=== PATIENT | male | born 1950 | race Caucasian/White ===

== ENCOUNTER 2022-12-27 09:44 | Day surgery (SDC) | payer MEDICARE, SELFPAY ==
--- NOTE | 2022-12-26 11:08 | P.CONAN_ITS ---
Documented by User: Kerri Batres NP 12/26/22 11:08 HPI - Anesthesia Eval Consult details Narrative: 72yo M for Colonoscopy [facility] Past Medical History Medical History Bradycardia HTN (hypertension) Hx of hyperlipidemia Surgical History Surgical History Hx of colonoscopy Hx of cystoscopy Hx of lithotripsy Social History Social History Patient Tobacco Use Status: Never used Tobacco Use of substances other than those prescribed or required for medical reasons: No Are you DNR?: No Advance Directives: No Advance Directives Information Provided: Yes Recently lost weight without trying: No Nutrition Risks: No Nutritional Risk Meds Allergies Allergy/AdvReac Type Severity Reaction Status Date / Time No Known Allergies Allergy Verified 12/26/22 11:08 Home Medications Medication Instructions Recorded Confirmed Last Taken Type amlodipine 5 mg-benazepril 10 mg 1 cap PO DAILY 12/26/22 12/26/22 Unknown History capsule Exam Exam Date and Time: December 26, 20221107 Assessment and Plan Assessment Anesthesia Assessment: Chart Reviewed Documented by User: Mounika Kuo MD 12/27/22 12:20 [facility] Past Medical History Medical History Bradycardia HTN (hypertension) Hx of hyperlipidemia Surgical History Surgical History Hx of colonoscopy Hx of cystoscopy Hx of lithotripsy History of Problems with Anesthesia: No Social History Social History Patient Tobacco Use Status: Never used Tobacco Use of substances other than those prescribed or required for medical reasons: No Are you DNR?: No Advance Directives: No Advance Directives Information Provided: Yes Recently lost weight without trying: No Nutrition Risks: No Nutritional Risk Meds Allergies Allergy/AdvReac Type Severity Reaction Status Date / Time No Known Allergies Allergy Verified 12/26/22 11:08 Home Medications Medication Instructions Recorded Confirmed Last Taken Type amlodipine 5 mg-benazepril 10 mg 1 cap PO DAILY 12/26/22 12/26/22 Unknown History capsule Exam Airway Mallampati Class: III TM Dist: >3cm Neck ROM: Full Partial: Upper Loose/Missing/Broken Teeth: Yes, Upper and Lower Heart: RRR Lungs: CTA Assessment and Plan Assessment Anesthesia Assessment: Anesthesia Plan Discussed Final Anesthetic Review History of Problems with Anesthesia: No NPO: Yes ASA Class: II Final Preanesthetic Review: Meds/Allgs Chart Reviewed, Consent Obtained/Reviewed and Anes Risks/Benef Reviewed Patient Risk: Low Procedure Risk: Low Anesthetic Plan Anesthetic Plan: MAC: Disposition: Standard PACU
--- OUTSIDE RECORDS SUMMARY | 2022-12-27 09:46 | XMS_ITS | Continuity of Care Document ---
Author Name Unknown Organization [facility] Address [address] [place] [address]- Care Team Providers Care Filter Bed Placer Name Role Phone Isael BARRY, Lewis Kam Primary Care Physician Encounter [facility] Date(s): 08/25/22 - 09/24/[address] [address] Attending Physician: Elma Camarena Admitting Physician: Elma Camarena Referring Physician: Elma Camarena Referring Physician: Concha Aponte Allergies, Adverse Reactions, Alerts No Known Allergies Immunizations Given and Recorded Vaccine Date Status Refusal Reason influenza virus vaccine, inactivated 07/20/22 Robin rded influenza virus vaccine, inactivated 07/21/21 Robin rded influenza virus vaccine, inactivated 05/18/20 Robin rded influenza virus vaccine, inactivated 07/30/19 Give n influenza virus vaccine, inactivated 05/25/17 Robin rded influenza virus vaccine, inactivated 1 06/02/16 Re corded influenza virus vaccine, inactivated 05/21/15 Robin rded influenza virus vaccine, inactivated 10/02/14 Robin rded [id number] bivalent booster vax 07/20/22 Recorded zoster vaccine, inactivated 12/06/21 Recorded zoster vaccine, inactivated 09/02/21 Recorded SARS-CoV-2 (COVID-19) mRNA-1273 vaccine 07/21/21 R ecorded SARS-CoV-2 (COVID-19) mRNA-1273 vaccine 11/12/20 R ecorded SARS-CoV-2 (COVID-19) mRNA-1273 vaccine 10/14/20 R ecorded pneumococcal 23-valent vaccine 07/30/19 Given pneumococcal 13-valent vaccine 2 06/08/17 Given Adacel (Tdap) (oldterm) 06/05/14 Recorded 1Result Comment: [06/02/2016] pt states he got today at work 2Result Comment: [06/08/2017] [facility]: [id number] Medications amlodipine-benazepril 5 mg-10 mg oral capsule 1 capsule, By Mouth, Daily, # 90 capsule, 0 Refills, 07/26/22 10:30:00 EST, [id number], 90,1 capsule By Mouth Daily, 175, cm, 06/10/22 8:39:00 EDT, Height Start Date: 07/26/22 Status: Ordered Benadryl 25 mg oral capsule 1 capsule = 25 mg, By Mouth, 3 times a day, 0 Refills, Maintenance, 09/22/21 14:17:00 EST, Partial fill upon patient request if the prescription is for a schedule II opioid drug. Start Date: 09/22/21 Status: Ordered cholecalciferol 2000 intl units oral tablet take one tab, by mouth daily, 06/18/13 16:11:00 Start Date: 06/18/13 Status: Ordered fluorouracil 0.5% topical cream 1 application, Topically, 2 times a day, # 30 Gm, 0 Refills, Maintenance, 09/22/21 14:17:00 EST, Cream, Partial fill upon patient request if the prescription is for a schedule II opioid drug. Start Date: 09/22/21 Status: Ordered ibuprofen 600 mg oral tablet 600 mg, 1, tablet, By Mouth, Every 8 hours, PRN, # 20 tablet, Refills 0, Tot. Refills 0, Maintenance, as needed for pain, 09/14/17 22:26:20, Print Requisition Start Date: 09/14/17 Status: Ordered Triamcinolone Once, 0 Refills, Maintenance, 09/22/21 14:18:00 EST, Partial fill upon patient request if the prescription is for a schedule II opioid drug. Start Date: 09/22/21 Status: Ordered Problem List Condition Confirmation Course Effective Dates Status H ealth Status Informant Hypercholesterolemia Confirmed Active Microscopic hematuria Confirmed Active Thrombocytopenia Confirmed Active Social History Social History Type Response Smoking Status Never smoker entered on: 06/11/15 Sex Patient Care team information Care Team Personnel Name: eLwis Kirkland MD Position: [facility] Primary Care Physician Member Role: PCP Address: Address: [address] [place] [address]- Care Team Related Persons Name: ADINA GORE Address: home [address] [facility] [address] [place] [address]
--- OUTSIDE RECORDS SUMMARY | 2022-12-27 09:46 | XMS_ITS | Continuity of Care Document ---
Author Name Unknown Organization [facility] [place] Address [address] [place] [address]- Care Team Providers Care Pharmaceutical Analyst Name Role Phone Isael BARRY, Lewis Kam Primary Care Physician ( [phone] Encounter [facility] Date(s): 12/04/20 - 01/03/21 [facility] [place] [address] [place] [address]- Attending Physician: Elma Camarena Admitting Physician: AdmElma vázquez Referring Physician: AdmtrElma Allergies, Adverse Reactions, Alerts Substance Reaction Severity Status No known allergies Active Immunizations Given and Recorded Vaccine Date Status Refusal Reason pneumococcal 23-valent vaccine 07/30/19 Given influenza virus vaccine, inactivated 07/30/19 Give n influenza virus vaccine, inactivated 1 06/02/16 Re corded pneumococcal 13-valent vaccine 2 06/08/17 Given Adacel (Tdap) (oldterm) 06/05/14 Recorded 1Result Comment: [06/02/2016] pt states he got today at work 2Result Comment: [06/08/2017] [facility]: [id number] Medications cholecalciferol 2000 intl units oral tablet take one tab, by mouth daily, 06/18/13 16:11:00 Start Date: 06/18/13 Status: Ordered ibuprofen 600 mg oral tablet 600 mg, 1, tablet, By Mouth, Every 8 hours, PRN, # 20 tablet, Refills 0, Tot. Refills 0, Maintenance, as needed for pain, 09/14/17 22:26:20, Print Requisition Start Date: 09/14/17 Status: Ordered Problem List Condition Effective Dates Status Health Status Inform ant Hypercholesterolemia(Confirmed) Active Microscopic hematuria(Confirmed) Active Thrombocytopenia(Confirmed) Active Social History Social History Type Response Smoking Status Never smoker entered on: 06/11/15 Sex
--- OUTSIDE RECORDS SUMMARY | 2022-12-27 09:46 | XMS_ITS | Continuity of Care Document ---
Author Name Unknown Organization [facility] [place] Address [address] [place] [address]- Care Team Providers Care Mechanical Press Operator Name Role Phone Lewis Kirkland MD Primary Care Physician Encounter [facility] Date(s): 06/28/20 - 09/04/20 [facility] [place] [address] [place] [address]- Attending Physician: Lewis Kirkland MD Allergies, Adverse Reactions, Alerts Substance Reaction Severity [...] got today at work 2Result Comment: [06/08/2017] [facility]: [id number] Medications cholecalciferol 2000 intl units oral tablet [...]
--- OUTSIDE RECORDS SUMMARY | 2022-12-27 09:46 | XMS_ITS | Continuity of Care Document ---
Author Name Unknown Organization [facility] ter Address [address] [place] [address]- Care Team Providers Care Export Coordinator Name Role Phone Isael BARRY, Lewis Kam Primary Care Physician Encounter [facility] Date(s): 09/03/22 - 11/03/[address] [address] Attending Physician: Papi Loving MD, I Admitting Physician: Papi Loving MD, I Allergies, Adverse Reactions, Alerts No Known Allergies [...] influenza virus vaccine, inactivated 10/02/14 Robin rded [id number] bivalent booster vax 07/20/22 Recorded zoster vaccine, [...] got today at work 2Result Comment: [06/08/2017] [facility]: [id number] Medications amlodipine-benazepril 5 mg-10 mg oral capsule 1 capsule, By Mouth, Daily, please fill pt leaving for vacation, # 90 capsule, 2 Refills, 10/05/22 15:02:00 EST, [id number], please fill pt going on vacation, 1 capsule By Mouth Daily,Instr:please fill pt leaving for vacation, 175, cm, ... Start Date: 10/05/22 Status: Ordered Benadryl 25 mg oral capsule [...] Status Never smoker entered on: 06/11/15 Sex History and physical note * Event Display: History and Physical Hospital Authored Date: Patient Care team information Care Team Personnel Name: Isael BARRY, Lewis Kam Position: [facility] Primary Care Physician Member Role: PCP Address: Address: [address] [place] [address]- Care Team Related Persons Name: ADINA GORE Address: home [address] [facility] [address] [facility] [address] [place] [address]
--- OUTSIDE RECORDS SUMMARY | 2022-12-27 09:46 | XMS_ITS | Continuity of Care Document ---
Author Name Unknown Organization [facility] Address [address] [place] [address]- Care Team Providers Care Water Taxi Operator Name Role Phone Isael BARRY, Lewis Kam Primary Care Physician Encounter [facility] Date(s): 03/25/20 - 04/24/20 [facility] [address] [place] [address]- [facility] Attending Physician: Elma Camarena Admitting Physician: AdmtrElma Referring Physician: Admtr, Ar8 Allergies, Adverse Reactions, Alerts Substance Reaction Severity [...] got today at work 2Result Comment: [06/08/2017] [facility]: [id number] Medications cholecalciferol 2000 intl units oral tablet [...]
--- OUTSIDE RECORDS SUMMARY | 2022-12-27 09:47 | XMS_ITS | Continuity of Care Document ---
Author Name Unknown Organization [facility] Address [address] [place] [address]- Care Team Providers Care Express Manager Name Role Phone Isael BARRY, Lewis Kam Primary Care Physician Encounter [facility] Date(s): 07/05/22 - 08/04/22 [facility] [address] [place], [place] [address] Allergies, Adverse Reactions, Alerts No Known Allergies Immunizations Given and Recorded Vaccine Date Status Refusal Reason pneumococcal 23-valent vaccine 07/30/19 Given influenza virus vaccine, inactivated 07/30/19 Give n influenza virus vaccine, inactivated 1 06/02/16 Re corded pneumococcal 13-valent vaccine 2 06/08/17 Given Adacel (Tdap) (oldterm) 06/05/14 Recorded 1Result Comment: [06/02/2016] pt states he got today at work 2Result Comment: [06/08/2017] [facility]: [id number] Medications amlodipine-benazepril 5 mg-10 mg oral capsule 1 capsule, By Mouth, Daily, # 90 capsule, 0 Refills, 07/26/22 10:30:00 EST, [id number], 90,1 capsule By Mouth Daily, 175, [...] Personnel Name: Isael BARRY, Lewis Kam Position: S Primary Care Physician Member Role: PCP Address: Address: [address] [place] [address]- Care Team Related Persons Name: ADINA GORE Address: home [address] [facility] [address] [place] [address]
--- OUTSIDE RECORDS SUMMARY | 2022-12-27 09:47 | XMS_ITS | Continuity of Care Document ---
Author Name Unknown Organization [facility] [place] Address [address] [place] [address]- Care Team Providers Care Engineering Program Analyst Name Role Phone Lewis Kirkland MD Primary Care Physician Encounter [facility] Date(s): 10/23/21 - 02/20/22 [facility] [place] [address] [place] [address]- Attending Physician: Lewis Kirkland MD Allergies, Adverse Reactions, Alerts No Known Allergies Immunizations Given and Recorded Vaccine Date Status Refusal Reason pneumococcal 23-valent vaccine 07/30/19 Given influenza virus vaccine, inactivated 07/30/19 Give n influenza virus vaccine, inactivated 1 06/02/16 Re corded pneumococcal 13-valent vaccine 2 06/08/17 Given Adacel (Tdap) (oldterm) 06/05/14 Recorded 1Result Comment: [06/02/2016] pt states he got today at work 2Result Comment: [06/08/2017] [facility]: [id number] Medications amlodipine-benazepril 5 mg-10 mg oral capsule 1 capsule, By Mouth, Daily, # 90 capsule, 0 Refills, 01/24/22 11:55:00 EDT, [id number], 90,1 capsule By Mouth Daily, 175, cm, 09/22/21 14:22:00 EST, Height Start Date: 01/24/22 Status: Ordered cholecalciferol 2000 intl units oral [...]
--- OUTSIDE RECORDS SUMMARY | 2022-12-27 09:47 | XMS_ITS | Continuity of Care Document ---
Author Name Unknown Organization [facility] Primary [facility] [place] Address [address] [place] [address]- Care Team Providers Care Test Equipment Mechanic Name Role Phone Lewis Kirkland MD Primary Care Physician Encounter [facility] [id number] Date(s): 01/28/20 - 02/27/20 [facility] [place] [address] [place] [address]- [facility] Attending Physician: Elma Camarena Admitting Physician: AdmElma [...] got today at work 2Result Comment: [06/08/2017] [facility]: [id number] Medications cholecalciferol 2000 intl units oral tablet [...]
--- OUTSIDE RECORDS SUMMARY | 2022-12-27 09:47 | XMS_ITS | Continuity of Care Document ---
Author Name Unknown Organization [facility] Address [address] [place] [address]- Care Team Providers Care Death Claim Examiner Name Role Phone Isael BARRY, Lewis Kam Primary Care Physician ( [phone] Encounter [facility] Date(s): 01/24/22 - 02/23/22 [facility] [address] [place], [place] [address] Allergies, Adverse Reactions, Alerts No Known Allergies Immunizations Given and Recorded Vaccine Date Status Refusal Reason pneumococcal 23-valent vaccine 07/30/19 Given influenza virus vaccine, inactivated 07/30/19 Give n influenza virus vaccine, inactivated 1 06/02/16 Re corded pneumococcal 13-valent vaccine 2 06/08/17 Given Adacel (Tdap) (oldterm) 06/05/14 Recorded 1Result Comment: [06/02/2016] pt states he got today at work 2Result Comment: [06/08/2017] [facility]: [id number] Medications amlodipine-benazepril 5 mg-10 mg oral capsule [...]
--- OUTSIDE RECORDS SUMMARY | 2022-12-27 09:47 | XMS_ITS | Continuity of Care Document ---
Author Name Unknown Organization [facility] Primary [facility] [place] Address [address] [place] [address]- Care Team Providers Care Cooler Service Supervisor Name Role Phone Isael BARRY, Lewis Kam Primary Care Physician Encounter [facility] Date(s): 09/07/20 - 10/07/20 [facility] [place] [address] [place] [address]- Attending Physician: Elma Camarena Admitting Physician: AdmElma [...] at work 2Result Comment: [06/08/2017] [facility]: [id number] Medications cholecalciferol 2000 intl units oral tablet [...]
--- OUTSIDE RECORDS SUMMARY | 2022-12-27 09:47 | XMS_ITS ---
Author Name Justice Corrigan Jr Address [address] [place] [address] Organization [facility] Address [address] [place] [address] Care Team Providers Care Licensed Bondsman Name Role Phone Justice Corrigan Jr Unavailable PROBLEMS Type Condition ICD9-CM Code [id number] Code Onset Dates Condition Status SNOMED Code Problem Abnormal CT scan, colon R93.3 Active 256819558 Problem Pancreatic cyst K86.2 Active [id number] ALLERGIES No Known Allergies ENCOUNTERS Encounter Location Date Diagnosis [facility] Outpatient [address] [place] [id number] December, [facility] [address] [place] [phone] Nov, Pancreatic cyst K86.[address] scan, colon R93.3 [facility] [address] [place] [phone] Nov, IMMUNIZATIONS Vaccine Route Administration Date Status Influenza Unknown May 31, 2022 Administered SOCIAL HISTORY Qualifiers Date Never Smoker REASON FOR REFERRAL FUNCTIONAL STATUS PLAN OF CARE Activity Details VITAL SIGNS Weight 184 lbs 2022-12-05 Height 68 in 2022-12-05 BMI 27.97 kg/m2 2022-12-05 Temperature 98.7 degrees Fahrenheit Blood pressure systolic 000 mm Hg Blood pressure diastolic 00 mm Hg 2022-11 MEDICATIONS Medication Instructions Dosage Frequency Start Date End Date Duration Status MiraLax (colon prep) 17 GM/SCOOP Orally begin at 5:00 p.m. the day before the procedure mixed with Gatorade or Crystal Light Nov, 1 day Active amLODIPine Besy-Benazepri l HCl 5-10 MG 90 Active Vitamin D (Ergocalcifero l) 1.25 MG ([address] UT) 1 capsule 30 day(s) Active PROCEDURES Procedure Date Ordered Result Body Site PATIENT NOT ELIG D/T ACTIVE DX HTN December 05, 2022 Pt scrn tbco id as non user December 05, 2022 RCMND FLW-UP 10 YRS DOCD February 05, 2019 DOC MEDS VERIFIED W/PT OR RE December 05, 2022 COLORECTAL CA SCREEN DOC REV December 05, 2022 INTRVL 3+YRS PTS CLNSCP DOCD February 05, 2019 COLOREC CANCR SCR; COLNSCPY HI RISK February 05, 2019 COLONOSCOPY AND BIOPSY Aug 20, 2013 RESULTS No Results REASON FOR VISIT abn ct scan ,colon, Patient presents today for abnormal CT / appt per dr. corrigan, with abnormal CT/ waitng on CT report Insurance Providers Health Insurance Type Health Plan Insurance Address Health Plan Insurance Phone Health Plan Insurance Name Health Plan Coverage Dates Member ID Patient Relationship to Subscriber Patient Address Patient Phone Patient Name Patient Date of Subscriber ID Subscriber Name Subscriber Date of Group No [place] [address] [facility] [phone] 04 [place] [id number] [place] [address] [facility] [id number] [employer] [place] self [place] [id number] [place] [address] [facility] [address] 65 04 [place] [id number] [employer] [place] [address] [facility] [id number] 20 60 [employer] [place] [place] self [place]DY [place] [id number]
--- OUTSIDE RECORDS SUMMARY | 2022-12-27 09:47 | XMS_ITS | Continuity of Care Document ---
Author Name Unknown Organization [facility] Address [address] [place] [address]- Care Team Providers Care Repair Service Clerk Name Role Phone Isael BARRY, Lewis Kam Primary Care Physician Encounter [facility] Date(s): 10/03/22 - 11/02/22 [facility] [address] [place], [place] [address] Allergies, Adverse Reactions, Alerts No Known [...] influenza virus vaccine, inactivated 10/02/14 Robin rded [id number] bivalent booster vax 07/20/22 Recorded zoster vaccine, [...] got today at work 2Result Comment: [06/08/2017] [facility]: [id number] Medications amlodipine-benazepril 5 mg-10 mg oral capsule [...] Care team information Care Team Personnel Name: Lewis Kirkland MD Position: S Primary Care Physician Member Role: PCP Address: Address: [address] [place] [address] [place] Care Team Related Persons Name: ADINA GORE Address: home [address] [facility] [address] [place] [address]
--- OUTSIDE RECORDS SUMMARY | 2022-12-27 09:47 | XMS_ITS | Continuity of Care Document ---
Author Name Unknown Organization [facility] Primary [facility] [place] Address [address] [place] [address]- Care Team Providers Care Furnishings Conservator Name Role Phone Lewis Kirkland MD Primary Care Physician ( [phone] Encounter [facility] Date(s): 04/22/19 - 08/15/19 [facility] [place] [address] [place] [address]- [facility] Attending Physician: Lewis Kirkland MD Allergies, Adverse [...] got today at work 2Result Comment: [06/08/2017] [facility]: [id number] Medications cholecalciferol 2000 intl units oral tablet [...]
--- OUTSIDE RECORDS SUMMARY | 2022-12-27 09:47 | XMS_ITS | Continuity of Care Document ---
Author Name Unknown Organization [facility] Primary [facility] [place] Address [address] [place] [address]- Care Team Providers Care Joist Setter Name Role Phone Isael BARRY, Lewis Kam Primary Care Physician Encounter [facility] Date(s): 03/10/20 - 04/09/20 [facility] [place] [address] [place] [address]- [facility] Allergies, Adverse Reactions, Alerts Substance Reaction Severity [...] today at work 2Result Comment: [06/08/2017] [facility]: [id number] Medications cholecalciferol 2000 intl units oral tablet [...]
--- OUTSIDE RECORDS SUMMARY | 2022-12-27 09:47 | XMS_ITS | Continuity of Care Document ---
Author Name Unknown Organization [facility] Primary [facility] Address [address] [place] [address]- Care Team Providers Care Electrical Designer Drafter Name Role Phone Lewis Kirkland MD Primary Care Physician Encounter [facility] Date(s): 05/26/20 - 09/04/20 [facility] [place] [address] [place] [address]- Attending Physician: Lewis Kirkland MD Allergies, Adverse [...] got today at work 2Result Comment: [06/08/2017] [facility]: [id number] Medications cholecalciferol 2000 intl units oral tablet [...]
--- OUTSIDE RECORDS SUMMARY | 2022-12-27 09:47 | XMS_ITS | Continuity of Care Document ---
Author Name Unknown Organization [facility] Primary [facility] Address [address] [place] [address]- Care Team Providers Care Tuber Machine Operator Name Role Phone Lewis Kirkland MD Primary Care Physician Encounter [facility] Date(s): 07/13/22 - 11/10/22 [facility] [address] [place], [place] [address] Attending Physician: Lewis Kirkland MD Allergies, Adverse [...] influenza virus vaccine, inactivated 10/02/14 Robin rded [id number] bivalent booster vax 07/20/22 Recorded zoster vaccine, [...] got today at work 2Result Comment: [06/08/2017] [facility]: [id number] Medications amlodipine-benazepril 5 mg-10 mg oral capsule 1 capsule, By Mouth, Daily, please fill pt leaving for vacation, # 90 capsule, 2 Refills, 10/05/22 15:02:00 EST, [id number], please fill pt going on vacation, 1 [...] Care Physician Member Role: PCP Address: Address: [address] [place] [address]- [place] Care Team Related Persons Name: ADINA GORE Address: home [address] [facility] [address] [place] [address]
[2022-12-27 11:08] VITALS: BMI 26.6
[2022-12-27 11:22] VITALS: BP 153/69; PULSE 43; RESP 16; TEMP 35.8; O2SAT 97
[2022-12-27] MEDS: Lactated Ringers 1,000 ML 100 ML IVCONT (11:54)
--- NOTE | 2022-12-27 12:32 | MHC.SHP ---
Pre-Procedural Eval Section A Date of Service: 12/27/22 Section B Chief Complaint: Abnormal findings on diagnostic imaging of other Details of Present Illness: see H&P Relevant Family History (Specify if Yes): No Relevant Social History: None Present Medications: see Short Stay Collaborative assessment Medical History: No relevant PMH History of Previous Operations: No relevant previous surgery Allergies: Allergies Allergy/AdvReac Type Severity Reaction Status Date / Time No Known Allergies Allergy Verified 12/26/22 11:08 Review of Systems Sugical H&P ROS: Negative: Constitution, Cardiovascular, Respiratory, Neurological, Psychiatric, Hem-Onc, Allergic/Immunologic, Gastrointestinal, Genitourinary, Musculoskeletal, Integumentary, Endocrine and Eyes/Ears/Nose/Throat Exam Surgical H&P Exam: Normal: HEENT, Normal: Heart, Normal: Lungs, Normal: Extremities, Normal: Abdomen, Normal: Skin and Normal: Neurological Plan Diagnosis/Plan: Unchanged I have reviewed the history and physical and performed a pertinent physical examination on my patient. No changes have occurred unless specified. Time Spent With Patient Time: Total time managing care of this patient today ____ minutes.
--- NOTE | 2022-12-27 13:01 | PM.OP ---
Brief Operative Note Date of Service: 12/27/22 Pre-op diagnosis: abnl ct Post-op diagnosis: same Procedure: colo Surgeon: Justice Corrigan Anesthesia: MAC Was an [employer] used for this Procedure?: No Estimated blood loss (mL): 2 Pathology: other Condition: stable Disposition: PACU
[2022-12-27 13:05] VITALS: BP 103/48; PULSE 47; RESP 20; TEMP 36.3; O2SAT 98
[2022-12-27 13:20] VITALS: BP 138/74; PULSE 41; RESP 16; TEMP 36.3; O2SAT 98
--- NOTE | 2022-12-27 13:21 | OP_ITS ---
DATE OF SERVICE: 12/27/2022 SURGEON: Justice Corrigan MD INDICATIONS: Abnormal CT scan of the colon. PREOPERATIVE DIAGNOSIS: POSTOPERATIVE DIAGNOSIS: PROCEDURE PERFORMED: Colonoscopy to the terminal ileum with biopsy. ESTIMATED BLOOD LOSS: COMPLICATIONS: ANESTHESIA: Monitored anesthesia care. ASSISTANTS: SPECIMENS: DESCRIPTION OF PROCEDURE: A history and physical was performed. The risks and benefits of the procedure were explained to the patient. Informed consent was obtained. The patient was placed in the left lateral decubitus position. A digital rectal exam was performed and was found to be normal. The Olympus pediatric video colonoscope was introduced into the rectum and advanced to the cecum without difficulty. The cecum was identified by transillumination, palpation, and identification of ileocecal valve. Examination was performed. The scope was removed. He tolerated the procedure well and was returned to the recovery area in stable condition. FINDINGS: The terminal ileum was examined and appeared normal. The visualized colonic mucosa was normal. The quality of the prep was good. A single polyp measuring less than 5 mm was removed with a biopsy forceps located at 70 cm from the anal verge. No other polyps were identified. Retroflexed examination showed some small internal hemorrhoids. IMPRESSION: Colon polyp. RECOMMENDATION: Follow up the biopsy results. MD RICHARD Vasques/MODL / [id number]
== END 2022-12-27 13:55 | disposition home or self-care (01) ==
PROVIDERS: PCP Internal Medicine; Visit Provider Internal Medicine Gastroenterology
PROC: 0DJD8ZZ Inspection of Lower Intestinal Tract, Via Natural or Artificial Opening Endoscopic (ICD-10-PCS; CPT 45378; principal; 2022-12-27 11:40)
DX: R93.3 Abnormal findings on diagnostic imaging of other parts of digestive tract (principal); D12.6 Benign neoplasm of colon, unspecified; K64.8 Other hemorrhoids; I10 Essential (primary) hypertension
CPT/HCPCS: 45380; 88305